=== PATIENT | female | born 1960 | race Hispanic/Latino ===

== ENCOUNTER 2020-08-21 11:01 | Outpatient (RCR) | payer BC | END 2020-09-17 | LOC: PT 11:01 | PROVIDERS: ATTEND Specialist | DX: M17.11 Unilateral primary osteoarthritis, right knee (principal); M25.461 Effusion, right knee; M62.81 Muscle weakness (generalized) ==

== ENCOUNTER → 2025-04-14 | Outpatient (REF) | payer OTHER | LOC: US 10:59 | PROVIDERS: ATTEND Family Medicine | DX: R74.01 Elevation of levels of liver transaminase levels (principal) | CPT/HCPCS: 76705 ==